=== PATIENT | male | born 1955 | race Caucasian/White ===

== ENCOUNTER 2020-07-16 23:16 | Observation (INO) ==
[2020-07-17] MEDS ORDERED: Ondansetron 4 MG/2 ML VIAL IVP PRN (02:54)
[2020-07-17] MEDS ORDERED: Naloxone 0.4 MG/ML INJ IVP PRN (02:54)
[2020-07-17] MEDS ORDERED: Acetaminophen 325 MG TABLET PO PRN (02:54)
[2020-07-17] MEDS ORDERED: Perflutren Lipid Microsphere 1.3 ML in 0.9 % Sodium Chloride 8.7 ML IVP PRN (02:57)
[2020-07-17 03:57] LABS: Chol/HDL Ratio 5.6 (0-4.9); Cholesterol 191 mg/dL (< 200); HDL Cholesterol 34 mg/dL (40-59); LDL Cholesterol,Calculated 116 mg/dL (< 100); Triglycerides 203 mg/dL (< 150); Troponin I < 0.03 ng/mL (< 0.04)
[2020-07-17] MEDS ORDERED: Nitroglycerin 0.4 MG TAB.SUBL SL PRN (04:06)
[2020-07-17] MEDS ORDERED: Aspirin 81 MG TAB.CHEW PO SCH (09:00)
[2020-07-17 11:11] LABS: Estimated Average Glucose 114 mg/dl; Hemoglobin A1C 5.6 %
[2020-07-17 11:41] LABS: Bilirubin,Urine Negative (Negative); Blood,Urine Negative (Negative); Clarity,Urine Clear (Clear); Color,Urine Light-Yellow (Yellow); Glucose,Urine (UA) Normal (Normal); Ketones,Urine Negative (Negative); Leukocyte Esterase,Urine Negative (Negative); Nitrite,Urine Negative (Negative); Protein,Urine Negative (Neg-Trace); Specific Gravity,Urine > 1.030 (1.010-1.025); Urobilinogen,Urine Normal (Normal)
[2020-07-17 14:24] VITALS: BP 135/80
== END 2020-07-17 17:10 | disposition home or self-care (01) ==
LOC: 3BNU → SUATTDRO 07-17 01:20
PROVIDERS: ADMIT Internal Medicine; ATTEND Internal Medicine